=== PATIENT | female | born 1985 | race Caucasian/White ===

== ENCOUNTER 2016-12-18 15:57 | Emergency (ER) | payer OTHER ==
[~2016-12-18] VITALS: Ht 160 cm; Wt 60.0 kg
[~2016-12-18 15:57] MED LIST: AMPH1TAB83 PO; BACL20TA PO; ERGO1CAP35 PO; NATA1INJ IV; NRT/25 PO
[2016-12-18 16:06] VITALS: TEMP 36.7; Ht 160 cm; Wt 60.0 kg
--- NOTE | 2016-12-18 18:17 | EMERGENCY ROOM VISIT NOTE ---
History Report prepared by Guillermo: Isidra Renteria Under the Supervision of: Dr. Naa Gabriel M.D. First contact with patient: 17:41 Chief Complaint: HEAD INJURY (MINOR) Stated Complaint: HIT HEAD AFTER DIZZY SPELL History of Present Illness The patient is a 31 year old female who presents to the Emergency Room with complaints of a sudden head injury that occurred several hours ago. She currently rates her discomfort as a 4/10 in severity. The patient states that she has a history of MS, noting that she has left sided deficit. She states that she experiences vertigo from time to time that causes her to feel she is rocking back and forth. The patient states that while with her sister at same day surgery today, her vertigo worsened and she fell, hitting the back of her head off the floor. She reports that she had a loss of consciousness after her fall. The patient additionally notes neck pain. The patient states that she feels dehydrated today. She states that she was recently prescribed a cane by her neurologist, but states that she does not want to use it. The patient denies any chest pain, abdominal pain, or back pain. She denies any chance of . Source of History: patient Onset: several hours ago Position: head Symptom Intensity: 4/10 Quality: other (injury) Timing: other (sudden) Associated Symptoms: + LOC, + neck pain, No chest pain, No abdominal pain, No back pain Review of Systems See HPI for pertinent positives & negatives. A total of 10 systems reviewed and were otherwise negative. Past Medical & Surgical Medical Problems: (1) Lump Or Mass In Breast (2) MS (multiple sclerosis) (3) Multiple sclerosis Surgical Problems: (1) H/O breast implant Family History Cancer Gallbladder disease Social History Smoking Status: Never Smoker Smokeless Tobacco Use: No Alcohol Use: occasionally Marital Status: Housing Status: lives with family Occupation Status: employed Current/Historical Medications Scheduled Baclofen (Baclofen), 20 MG PO HS Baclofen (Baclofen), 10 MG PO QAM Control Pills ( Control Pills), 1 TAB PO DAILY Fluticasone Propionate (Fluticasone Propionate), 2 SPRAYS JYOTI DAILY Modafinil (Provigil), 200 MG PO QAM Natalizumab (Tysabri), 300 MG IV [id number] Scheduled PRN Albuterol Hfa (Ventolin Hfa), 2 PUFFS INH Q4H PRN for Wheezing Fluticasone Propionate (Flovent Hfa), 2 PUFFS INH BID PRN for Shortness of Breath Allergies Coded Allergies: Sulfamethoxazole w/Trimethoprim (Verified Allergy, Intermediate, Hives, ) Latex1 -Allergic Contact Dermititis (Verified Allergy, Unknown, 07/31/15) Physical Exam Vital Signs Date Time Temp Pulse Resp B/P (MAP) Pulse Ox O2 Delivery O2 Flow Rate FiO2 12/18/16 21:46 73 18 113/69 99 12/18/16 20:16 87 16 106/65 100 Room Air 12/18/16 18:28 59 18 116/64 100 Room Air 12/18/16 16:06 36.7 65 16 120/77 100 Room Air Physical Exam Vital signs reviewed. General: Well-appearing female, in no significant distress. HEENT: No scleral icterus, PERRLA, neck supple. Atraumatic. Cardiovascular: Regular rate and rhythm, no extra sounds. Pulmonary: Clear to auscultation bilaterally, normal work of breathing. Abdomen: Soft, nontender, nondistended, positive bowel sounds. Musculoskeletal: Atraumatic, no peripheral edema. Neurologic: Patient awake alert and oriented x 3, full strength in all 4 extremities. Cranial nerves 2 through 12 grossly intact. GCS 15. Skin: Warm, dry, no rash Medical Decision & Procedures ER Provider Diagnostic Interpretation: CT results as stated below per my review and radiologist interpretation: CT OF THE HEAD WITHOUT CONTRAST CLINICAL HISTORY: Head injury with loss of consciousness. History of multiple sclerosis and vertigo. COMPARISON STUDY: MRI of the brain February 21, 2015. CT DOSE: 537.48 mGy.cm TECHNIQUE: Helical axial images of the head were obtained without IV contrast. Automated exposure control was utilized for the study. FINDINGS: No acute intracranial hemorrhage, midline shift or mass effect is present. Ventricular system is normal. Basilar cisterns are patent. There are no extra-axial collections. Del Roasrio-white differentiation is maintained. There are multiple white matter hypodensities. There is no calvarial fracture. Visualized portions of the sinuses and mastoid air cells are clear. IMPRESSION: 1. No acute intracranial findings. 2. No calvarial fracture. 3. Numerous white matter hypodensities which likely reflect foci of demyelination given the clinical history of multiple sclerosis. Electronically signed by: Paul Ramsey M.D. 12/18/2016 7:02 PM Dictated Date/Time: 12/18/2016 6:57 PM Laboratory Results 12/18/16 18:25 Red Blood Count 4.26, Mean Corpuscular Volume 89.9, Mean Corpuscular Hemoglobin 31.5, Mean Corpuscular Hemoglobin Concent 35.0, Mean Platelet Volume 10.3, Neutrophils (%) (Auto) 42.6, Lymphocytes (%) (Auto) 47.4, Monocytes (%) (Auto) 7.6, Eosinophils (%) (Auto) 1.8, Basophils (%) (Auto) 0.3, Neutrophils # (Auto) 3.07, Lymphocytes # (Auto) 3.41, Monocytes # (Auto) 0.55, Eosinophils # (Auto) 0.13, Basophils # (Auto) 0.02 12/18/16 18:25 Test 12/18/16 18:25 White Blood Count 7.20 K/uL (4.8-10.8) Red Blood Count 4.26 M/uL (4.2-5.4) Hemoglobin 13.4 g/dL (12.0-16.0) Hematocrit 38.3 % (37-47) Mean Corpuscular Volume 89.9 fL (80-100) Mean Corpuscular Hemoglobin 31.5 pg (25-34) Mean Corpuscular Hemoglobin Concent 35.0 g/dl (32-36) Platelet Count 279 K/uL (130-400) Mean Platelet Volume 10.3 fL (7.4-10.4) Neutrophils (%) (Auto) 42.6 % Lymphocytes (%) (Auto) 47.4 % Monocytes (%) (Auto) 7.6 % Eosinophils (%) (Auto) 1.8 % Basophils (%) (Auto) 0.3 % Neutrophils # (Auto) 3.07 K/uL (1.4-6.5) Lymphocytes # (Auto) 3.41 K/uL (1.2-3.4) Monocytes # (Auto) 0.55 K/uL (0.11-0.59) Eosinophils # (Auto) 0.13 K/uL (0-0.5) Basophils # (Auto) 0.02 K/uL (0-0.2) RDW Standard Deviation 42.2 fL (36.4-46.3) RDW Coefficient of Variation 13.0 % (11.5-14.5) Immature Granulocyte % (Auto) 0.3 % Immature Granulocyte # (Auto) 0.02 K/uL (0.00-0.02) Nucleated RBC Absolute Count (auto) 0.03 K/uL (0-0) Nucleated Red Blood Cells % 0.4 % Anion Gap 9.0 mmol/L (3-11) Est Creatinine Clear Calc Drug Dose 76.1 ml/min Estimated GFR () 101.4 Estimated GFR (Non- 87.5 BUN/Creatinine Ratio 14.5 (10-20) Calcium Level 9.1 mg/dl (8.5-10.1) Laboratory results per my review. Medications Administered Medications (Trade) Dose Ordered Sig/Shanna Route Start Time Stop Time Status Last Admin Dose Admin Fentanyl Citrate (Fentanyl Inj) 50 mcg NOW STAT IV 12/18/16 18:32 12/18/16 18:34 DC 12/18/16 18:39 50 MCG Ondansetron HCl (Zofran Inj) 4 mg NOW STAT IV 12/18/16 18:32 12/18/16 18:34 DC 12/18/16 18:39 4 MG Sodium Chloride 1,000 ml @ 999 mls/hr Q1H1M STAT IV 12/18/16 18:32 12/18/16 19:32 DC 12/18/16 18:39 999 MLS/HR Prochlorperazine Edisylate (Compazine Inj) 10 mg NOW STAT IV 12/18/16 19:43 12/18/16 19:45 DC 12/18/16 20:10 10 MG Diphenhydramine HCl (Benadryl Inj) 25 mg NOW STAT IV 12/18/16 19:43 12/18/16 19:45 DC 12/18/16 20:09 25 MG Ketorolac Tromethamine (Toradol Inj) 30 mg NOW STAT IV 12/18/16 19:43 12/18/16 19:45 DC 12/18/16 20:10 30 MG ED Course 1802: Past medical records reviewed. The patient was evaluated in room B11A. A complete history and physical examination was performed. 1832: Ordered Sodium Chloride 1000 ml @ 999 mls/hr IV, Zofran Inj 4 mg IV, Fentanyl Inj 50 mcg IV. 193: I reevaluated the patient and her headache is unbearable. I discussed the exam findings with her and I discussed the treatment plan. She verbalized complete understanding and agreement. She will be discharged after she receives more medication. 1942: Ordered Toradol Inj 30 mg IV, Benadryl Inj 25 mg IV, Compazine Inj 10 mg IV. Medical Decision DDx: Intracranial hemorrhage, intracranial mass, migraine headache, tension headache , sinusitis, meningitis Medication Reconciliation: I attest that I have personally reviewed the patient' s current medication list. Blood Pressure Screening: Patient was found to have normal blood pressure on screening and does not require follow-up. This patient was evaluated and appeared to be in no significant distress. She is fairly tearful and "embarrassed" about her fall. She does not want use her cane she was recently prescribed. CT scan of the head was performed due to the apparent loss of consciousness. This CT is negative. IV access was obtained and the patient was given IV fentanyl 50 g for her pain and Zofran 4 mg for nausea. This apparently did not help her significantly. Subsequently she was given IV Compazine, Toradol and Benadryl with significant improvement. The patient was discharged in care of her . She was encouraged to use her cane to avoid falls. She will follow-up with her primary care physician and return to the ER for worsening of symptoms or any medical concerns. Impression Primary Impression: Post-concussion headache Scribe Attestation The scribe's documentation has been prepared under my direction and personally reviewed by me in its entirety. I confirm that the note above accurately reflects all work, treatment, procedures, and medical decision making performed by me. Departure Information Dispostion Home / Self-Care Referrals Radha Salcedo D.O. (PCP) Forms HOME CARE DOCUMENTATION FORM, IMPORTANT VISIT INFORMATION Patient Instructions [facility] Additional Instructions Diagnosis: Postconcussive headache Continue Tylenol 650 mg every 6 hours as needed for pain. Drink plenty of fluids. Follow-up with your physician this week for reevaluation. Return to the ER for worsening of symptoms or any medical concerns.
[2016-12-18] MEDS ORDERED: MODA200T42 PO (18:26)
[2016-12-18] MEDS ORDERED: VNTHFA/IN INH (18:26)
[2016-12-18] MEDS ORDERED: LRS10 PO ×2 (18:26)
[2016-12-18] MEDS ORDERED: BCPILLS PO (18:26)
[2016-12-18] MEDS ORDERED: FLNIN/ NAE (18:26)
[2016-12-18] MEDS ORDERED: FLVHFA110 INH (18:26)
[2016-12-18] MEDS ORDERED: SODIUM CHLORIDE 0.9% 1000ML 1,000 ML IV STA (18:32)
[2016-12-18] MEDS ORDERED: FENTANYL CITRATE INJ 50 MCG/1 ML 2 ML VIAL IV STA (18:32)
[2016-12-18] MEDS ORDERED: ONDANSETRON INJ 2 MG/ML 2 ML VIAL IV STA (18:32)
[2016-12-18 18:48] LABS: BASO % 0.3 %; BASO ABS # 0.02 K/uL (0-0.2); COMPLETE YES; EOS % 1.8 %; HEMATOCRIT 38.3 % (37-47); IG% 0.3 %; LYMPH % 47.4 %; LYMPH ABS # 3.41 K/uL (1.2-3.4); MEAN CELL VOLUME 89.9 fL (80-100); MEAN CORPUSCULAR HEMOGLOBIN 31.5 pg (25-34); MEAN PLATELET VOLUME 10.3 fL (7.4-10.4); MONO % 7.6 %; NEUT % 42.6 %; PLATELET COUNT 279 K/uL (130-400); RED BLOOD COUNT 4.26 M/uL (4.2-5.4)
--- NOTE | 2016-12-18 19:03 | DIAGNOSTIC IMAGING REPORT ---
CT OF THE HEAD WITHOUT CONTRAST CLINICAL HISTORY: Head injury with loss of consciousness. History of multiple sclerosis and vertigo. COMPARISON STUDY: MRI of the brain February 21, 2015. CT DOSE: 537.48 mGy.cm TECHNIQUE: Helical axial images of the head were obtained without IV contrast. Automated exposure control was utilized for the study. FINDINGS: No acute intracranial hemorrhage, midline shift or mass effect is present. Ventricular system is normal. Basilar cisterns are patent. There are no extra-axial collections. Del Rosario-white differentiation is maintained. There are multiple white matter hypodensities. There is no calvarial fracture. Visualized portions of the sinuses and mastoid air cells are clear. IMPRESSION: 1. No acute intracranial findings. 2. No calvarial fracture. 3. Numerous white matter hypodensities which likely reflect foci of demyelination given the clinical history of multiple sclerosis. Electronically signed by: Paul Ramsey M.D. 12/18/2016 7:02 PM Dictated Date/Time: 12/18/2016 6:57 PM
[2016-12-18 19:07] LABS: BUN/CREATININE RATIO 14.5 (10-20); CALCIUM 9.1 mg/dl (8.5-10.1); CREATININE 0.87 mg/dl (0.60-1.20); POTASSIUM 3.8 mmol/L (3.5-5.1)
[2016-12-18] MEDS ORDERED: PROCHLORPERAZINE 5 MG/ML 2 ML VIAL IV STA (19:43)
[2016-12-18] MEDS ORDERED: DiphenhydrAMINE HCL 50 MG/ML VIAL IV STA (19:43)
[2016-12-18] MEDS ORDERED: KETOROLAC TROMETHAMINE 30 MG/ML VIAL IV STA (19:43)
[2016-12-18 21:46] VITALS: BP 113/69; PULSE 73; O2SAT 99
== END 2016-12-18 21:47 | disposition home or self-care (01) ==
LOC: C.EDB 15:58
DX: G44.309 Post-traumatic headache, unspecified, not intractable (principal); W19.XXXA Unspecified fall, initial encounter; G35 Multiple sclerosis

== ENCOUNTER 2023-01-02 06:07 | Observation (INO) ==
--- NOTE | 2022-12-29 10:43 | Anesthesiology Consultation ---
Date of Service December 29, 2022 Assessment & Plan (1) Encounter for pre-operative examination: Chart Review Chart Review: Acceptable Risk for Surgery History Surgery Operation Date: 01/02/23 07:30 Proposed Procedures p Total Laparoscopic Hysterectomy Bilateral Salpingectomy and Cystoscopy Possible Laparotomy - Cole Kaplan MD Height/Weight Height: 5 ft 2 in Weight: 52.163 kg Allergies Allergy/AdvReac Type Severity Reaction Status Date / Time Bactrim Allergy Intermediate Hives Verified 11/21/22 15:21 sulfamethoxazole [Bactrim] Allergy Intermediate Hives Verified 12/19/22 11:13 trimethoprim [Bactrim] Allergy Intermediate Hives Verified 12/19/22 11:13 Medications Home Medications Medication Instructions Recorded Confirmed Last Taken modafinil 100 mg tablet (Provigil) 100 mg PO BID 12/19/22 12/19/22 Unknown multivitamin 1 tab PO 3XWK 12/19/22 12/19/22 Unknown ocrelizumab 30 mg/mL intravenous 30 mg IV UD 12/19/22 12/19/22 Unknown solution (Ocrevus) Past Medical History Medical History Ankylosing spondylitis Fatigue Gilbert syndrome MS (multiple sclerosis) Seasonal allergies Past Surgical History Surgical History Breast mass rt/left benign mass removed H/O breast augmentation H/O breast reconstruction done after breast mass removed on rt/left breast H/O myomectomy open procedure History of cholecystectomy History of esophagogastroduodenoscopy (EGD) History of liver biopsy History of tonsillectomy and adenoidectomy Hx of LASIK Kindred teeth removed Social History Smoking Status: Former smoker tobacco type: cigarettes Do You Dip or Chew Tobacco: No Smoking End Date: +15 years ago Hx Alcohol Use: Yes Alcohol type: wine alcohol intake frequency: 0-2 drinks per day substance use type: does not use
[~2023-01-02 06:07] MED LIST changes: -AMPH1TAB83 PO; -BACL20TA PO; -ERGO1CAP35 PO; +LACTATED RINGER'S 1,000 ML IV SCH; +LR 15ML/HR IV SCH; -NATA1INJ IV; -NRT/25 PO; +ceFAZolin 2000MG 2,000 MG/15 ML SYR IV SCH
[2023-01-02] MEDS ORDERED: SCOPOLAMINE 1 MG TDSY TD ONE (06:59)
[2023-01-02] MEDS ORDERED: ONDANSETRON INJ 2 MG/ML 2 ML VIAL ONE ×2 (07:00→08:08)
[2023-01-02] MEDS ORDERED: ROCURONIUM BROMIDE 10 MG/ML 5 ML VIAL IV ONE ×6 (07:00→10:50)
[2023-01-02] MEDS ORDERED: PROPOFOL IV EMULSION 10 MG/ML 20 ML VIAL IV ONE ×3 (07:00→10:50)
[2023-01-02] MEDS ORDERED: DEXAMETHASONE SOD INJ 4 MG/ML VIAL ONE (07:00)
[2023-01-02] MEDS ORDERED: LIDOCAINE 2% 2 ML VIAL/AMP(20MG/ML) INFIL ONE (07:00)
[2023-01-02] MEDS ORDERED: fentaNYL citrate PF 100 MCG/2 ML VIAL ONE ×3 (07:01→11:53)
[2023-01-02] MEDS ORDERED: SUGAMMADEX SODIUM 200 MG/2 ML VIAL IV ONE (07:01)
[2023-01-02] MEDS ORDERED: MIDAZOLAM HCL 1 MG/ML 2ML VIAL ONE (07:01)
--- NOTE | 2023-01-02 07:09 | History & Physical Bridge Note ---
Date of Service January 02, 2023 History & Physical Bridge Note I have examined the patient, reviewed the History & Physical and in the interval since the performance of the History & Physical I have noted the following changes of clinical significance: no changes noted
[2023-01-02] MEDS ORDERED: KETOROLAC 30 MG/ML VIAL ONE (07:12)
[2023-01-02] MEDS ORDERED: KETAMINE 50 MG/5 ML SYRINGE ONE (07:12)
[2023-01-02] MEDS ORDERED: BUPIVACAINE/EPINEPHRINE 0.5% MPF 1:200,000 30 ML VIAL ONE (07:31)
[2023-01-02] MEDS ORDERED: ATROPINE SULFATE 0.1 MG/ML 10ML SYR IV PRN (07:35)
[2023-01-02] MEDS ORDERED: ONDANSETRON INJ 2 MG/ML 2 ML VIAL IV PRN ×2 (07:35→12:02)
[2023-01-02] MEDS ORDERED: ePHEDrine sulfate 50 MG/ML AMP IV PRN (07:35)
[2023-01-02] MEDS ORDERED: fentaNYL citrate PF 100 MCG/2 ML VIAL IV PRN (07:35)
[2023-01-02] MEDS ORDERED: PROMETHAZINE HCL 12.5 MG in SODIUM CHLORIDE 0.9% 50 ML IV PRN (07:35)
[2023-01-02] MEDS ORDERED: REMIFENTANIL HCL 1 MG VIAL IV ONE (08:20)
[2023-01-02] MEDS ORDERED: hydrALAZINE HCL 20 MG/ML VIAL ONE (09:01)
[2023-01-02] MEDS ORDERED: ceFAZolin 330 MG/ML 1 GM VIAL ONE (11:42)
[2023-01-02] MEDS ORDERED: ZOLPIDEM TARTRATE 5 MG TAB PO PRN (12:02)
--- NOTE | 2023-01-02 12:02 | Post Operative Brief Note ---
Immediate Post Op Note v1 Date of Surgery January 02, 2023 Pre & Post Diagnosis Operation Date: 01/02/23 07:30 Pre-Op Diagnosis: Fibroid Uterus, History of Endometriosis Post-Op Diagnosis: Fibroid Uterus, History of Endometriosis I identified the patient and participated in the time-out.: Yes Procedure Operation Date: 01/02/23 07:30 Actual Procedures p Total Laparoscopic Hysterectomy, Bilateral Salpingectomy and Cystoscopy(Bilateral) - Cole Kaplan MD Surgeon Cole Kaplan MD Furnace Worker ramin harmon Estimated Blood Loss 10 (+) Findings Consistent with Post-Op Diagnosis Drains Gomez Catheter
[2023-01-02] MEDS: HYDROmorphone INJ 2 MG/ML SYR/VIAL IV PRN ×6 (12:03→12:35)
[2023-01-02] MEDS ORDERED: diphenhydrAMINE 50 MG/ML VIAL IV PRN (13:28)
[2023-01-02] MEDS ORDERED: ACETAMINOPHEN 1,000 MG/100 ML VIAL IV STA (13:28)
--- NOTE | 2023-01-02 13:44 | Anesthesiology Progress Note ---
Date of Service January 02, 2023 Anesthesia Post Procedure Vital Signs Vital Signs: Temp Pulse Pulse Resp BP Pulse Ox O2 Del Method 01/02/23 12:55 36.9 C 88 16 96/49 L 94 Room Air 01/02/23 12:45 90 14 99/51 L 96 Room Air 01/02/23 12:35 84 24 87/44 L 97 Room Air 01/02/23 12:25 90 19 97/48 L 96 Room Air 01/02/23 12:15 81 14 92/44 L 100 Nasal Cannula 01/02/23 12:05 92 H 29 H 93/45 L 100 Nasal Cannula 01/02/23 11:58 37.3 C 98 H 27 H 89/45 L 100 Oxymask 01/02/23 06:25 36.7 C 77 18 142/93 H 100 Room Air O2 Flow Rate 01/02/23 12:55 01/02/23 12:45 01/02/23 12:35 01/02/23 12:25 01/02/23 12:15 2 01/02/23 12:05 2 01/02/23 11:58 4 01/02/23 06:25 Pain Intensity Abdomen: Pain Intensity: 4 Transfer of Care Handoff Completed per policy Notes Mental Status: alert / awake / arousable and participated in evaluation Patient Amnestic to Procedure: Yes Nausea / Vomiting: adequately controlled Pain: adequately controlled Airway Patency, RR, SpO2: stable & adequate BP & HR: stable & adequate Hydration State: stable & adequate Anesthetic Complications: no major complications apparent
[2023-01-02] MEDS ORDERED: diphenhydrAMINE Capsule 25 MG CAP PO PRN (14:53)
[2023-01-02] MEDS: oxyCODONE/ACETAMINOPHEN 5mg/325mg TAB PO PRN ×3 (14:54→20:03)
--- NOTE | 2023-01-02 18:27 | Operative Report ---
PG Post Operative Report Pre & Post Diagnosis Operation Date: 01/02/23 07:30 Pre-Op Diagnosis: Fibroid Uterus, History of Endometriosis Post-Op Diagnosis: Fibroid Uterus, History of Endometriosis I identified the patient and participated in the time-out.: Yes Procedure Operation Date: 01/02/23 07:30 Actual Procedures p Total Laparoscopic Hysterectomy, Bilateral Salpingectomy and (Bilateral) - Deanna Kaplan MD s Cystoscopy(Bilateral) - Deanna Kaplan MD Extensive lysis of adhesion- deanna Kaplan Incision and drainage of bilateral ovarian endometriomas Surgeon Deanna Kaplan MD Associate Drafter ramin harmon Estimated Blood Loss 10 (+) Findings Consistent with Post-Op Diagnosis Nml female escutcheon. Fibroid uterus about 15 week size. bilateral endometrioma of both ovaries. extensive pelvic adhesions from endometriosis stage 4, several endometrial implants in pelvis and lower abdomen, Fluids 1600 Specimens Uterus with cervix left and right fallopian tubes Drains none Anesthesia Type General Complications none Indications fibroid uterus chronic pelvic pain endometriosis stage 4 Description of Procedure FINDINGS: DESCRIPTION OF PROCEDURE: The patient was prepped and draped in normal sterile fashion in the dorsal lithotomy position. Gomez catheter was placed without difficulty. An [employer] uterine manipulator was placed in the uterus to help with colpotomy. Attention was paid to the abdominal part of the procedure where a supraumbilical incision was made and carried down to the fascia. Rahel was used to grab the fascia. Veress needle was introduced into the abdomen at a 45-degree angle while tenting up the abdomen. Intra-abdominal placement was confirmed with a water-filled syringe. A water drop and suction test was performed. The abdomen was insufflated with CO2 gas. The Veress needle was removed and a 5 mm non bladed trocar was attached to a laparoscope was introduced into the abdomen under direct visualization. This was a non bladed trocar. Once inside the abdomen, laparoscope was repositioned. Inspection of the abdomen shows the findings as dictated above. Three more accessory ports were placed, two 5 mm accessory ports were placed in the lower abdomen on the contralateral side, in addition, an 11 mm trocar was placed on the left upper quadrant. General inspection of the abdomen and pelvis was performed as dictated above. There were several adhesions. pt has stage 4 endometriosis..Omentum was attached to abdominal wall. There was no bowel in the omentum, so the LigaSure was passed through one of the contralateral port and dissection of the omentum from the abdominal wall was performed. There was good hemostasis. Left and right fallopian tubes, the ureters, uterosacrals, bowels, appendix were examined and identified. LigaSure was passed through the left accessory port.Extensive lyisi of adhesion was performed using traction and counter traction. This now made visualization and identification of abdominal and pelvic structures possible. The Myoma screw was inserted to help manipulate the fibroid uterus.The left fallopian tube was identified and grabbed 4 cm from the cornua of the uterus with the LigaSure and transected. This was followed by opening of the left anterior leaf of the broad ligament. This allowed for fenestration of the posterior left broad ligament. The mid-section of the left fallopian tube, utero-ovarian and meso-ovarian pedicles were transected as well. Same procedure was performed on the contralateral side. The anterior broad ligament dissection was carried to the mid-section of the vesicouterine peritoneum over the bladder using the Harmonic scalpel. Same procedure was carried out on the contralateral side. The posterior broad ligament peritoneum was carefully dissected also from both sides over the uterosacral arch in order to displace the ureters laterally. Using traction and countertraction, the [place] retractor and irrigation probe was used to further dissect the bladder off the lower segment of the uterus. Bladder pillars and pubovesical fascia was dissected as well. Harmonic scalpel was used to obtain hemostasis where needed. Uterine manipulator was now palpable over the vaginal tissue. The right uterine pedicles were skeletonized and coagulated with the LigaSure. Good hemostasis was obtained. Same procedure was performed on the contralateral side. Cardinal ligaments were transected on both sides. Once good hemostasis was obtained, colpotomy was performed using the LigaSure hook from both sides. Uterus was removed through the vagina while still attached to the uterine manipulator. The bulb was attached to the uterine manipulator was reinserted into the vagina to establish pneumoperitoneum. With a grasper, the remaining section of the left ovary and tube were positioned anteromedially.Left Fallopian tube were removed. Same procedure was performed on contralateral sides. Both ovaries had endometrioma cyst on the, both ovaries were transected with the LigaSure and endometrioma irrigated out of the ovary EndoStitch closure device was passed through the 11 mm port on the left. Using the [place] grasper for traction, colpotomy closure was performed. The uterosacral ligaments incorporated into the closure in order to decrease the risk of prolapse. Lapra ties were used with the EndoStitch. The 11-mm trocar site was closed with a Jevon-James under direct visualization. Attention was paid to the cystoscopy part of the procedure where a cystoscope was introduced into the bladder. There are no sutures seen in the bladder. There were no gross blood seen in the bladder as well. The bubble sign is noted showing the bladder was a close cavity. Both ureters were seen and there was efflux from both uterus. The skin incisions are closed with Dermabond, except for the 11-mm trocar site, which was closed with 4-0 Monocryl. The patient was returned to recovery in stable condition. Inspection of the vagina shows the vaginal cuff was intact. All instruments were removed from the vagina and the bladder and accounted for x2. Associate Drafter was necessary to help with retraction and manipulation of instruments in order to provide for a safe operation I attest to the content of the Intraoperative Record and any orders documented therein. Any exceptions are noted below.
[2023-01-02] MEDS: IBUPROFEN 600 MG TAB PO PRN (19:37)
[2023-01-02] MEDS: DOCUSATE SODIUM 100 MG CAP PO SCH (20:03)
[2023-01-02] MEDS: LACTATED RINGER'S 1,000 ML IV SCH (20:56)
[2023-01-03] MEDS: SIMETHICONE 80 MG CHEW PO PRN ×3 (00:05→12:48)
[2023-01-03] MEDS: IBUPROFEN 600 MG TAB PO PRN ×4 (00:05→12:47)
[2023-01-03] MEDS: oxyCODONE/ACETAMINOPHEN 5mg/325mg TAB PO PRN ×4 (00:07→12:47)
[2023-01-03] MEDS: LACTATED RINGER'S 1,000 ML IV SCH (04:55)
[2023-01-03 07:16] LABS: Basophils # (auto) 0.02 K/uL (0-0.2); Basophils % (auto) 0.4 %; Eosinophils # (auto) 0.02 K/uL (0-0.50); Eosinophils % (auto) 0.4 %; Hematocrit (blood only) 25.7 % (37.0-47.0); Hemoglobin 8.9 g/dl (12.0-16.0); Immature Granulocytes # (auto) 0.02 K/uL (0.01-0.20); Immature Granulocytes % (auto) 0.4 %; Lymphocytes # (auto) 1.87 K/uL (1.2-3.4); Lymphocytes % (auto) 34.1 %; Mean Corpuscular Hemoglobin 33.1 pg (25.0-34.0); Mean Corpuscular Hgb Conc 34.6 g/dL (32.0-36.0); Mean Corpuscular Volume 95.5 fL (80.0-100.0); Mean Platelet Volume 9.8 fL (9.4-12.4); Monocytes # (auto) 0.42 K/uL (0.11-0.59); Monocytes % (auto) 7.7 %; Neutrophils # (auto) 3.14 K/uL (1.40-6.50); Platelet Count 191 K/uL (130-400); RDW Coefficient of Variation 12.1 % (11.5-14.5); RDW Standard Deviation 42.2 fL (36.4-46.3); Red Blood Count 2.69 M/uL (4.20-5.40); White Blood Count 5.49 K/ul (4.8-10.8)
[2023-01-03] MEDS: DOCUSATE SODIUM 100 MG CAP PO SCH (07:25)
[2023-01-03 07:43] LABS: BUN Creatinine Ratio 10.4 (10-20); Calcium 7.9 mg/dl (8.6-10.3); Creatinine Clr Calc Pharmacy 89.2 ml/min; Est GFR (African American) 128.3 ml/min; Est GFR (Non-African American) 110.7 ml/min; Potassium 3.8 mmol/L (3.5-5.1)
--- NOTE | 2023-01-03 09:32 | Obstetrical Progress Note ---
Date of Service January 03, 2023 Assessment & Plan (1) Postop check: Pt doing well no complaints disc home with instructions Subjective Review of Systems All systems reviewed & are unremarkable except as noted in HPI & below Physical Exam Constitutional WD/WN, vitals as above Eyes PERRL, conjunctivae normal, anicteric sclerae ENMT external ear and nose normal, oropharynx normal Neck trachea midline, no thyromegaly Respiratory normal respiratory effort, lungs clear to auscultation Cardiovascular RRR, no murmur, no edema Chest (Breasts) normal inspection/palpation of breasts Gastrointestinal (Abdomen) normal bowel sounds, soft, nontender, no hepatosplenomegaly Musculoskeletal no cyanosis or clubbing, extremities motor strength 5/5 Skin + incision (Incision clean,dry and intact) Neurologic patellar DTR's 2+ bilat, sensation intact Psychiatric A+Ox3, euthymic affect Genitourinary no vaginal lesions, no adnexal mass Lymphatic no cervical or axillary lymphadenopathy Results & Data Vital Signs (Past 12 Hours) Vital Signs Temp Pulse Resp BP Pulse Ox O2 Del Method 01/03/23 08:00 36.6 C 59 L 18 109/70 99 Room Air 01/03/23 03:36 36.7 C 57 L 18 106/70 98 Room Air 01/02/23 22:56 36.6 C 78 18 108/68 98 Room Air
--- NOTE | 2023-01-03 09:46 | Discharge Summary ---
Date of Service January 03, 2023 Admission HPI Per Admitting Provider Pt admitted on 01/02/23 for laparoscopic hysterectomy. Surgery successfully performed and pt is discharged home today 01/03/23 in stable condition. Details of surgery in surgical note Discharge Data Procedures Performed Operation Date: 01/02/23 07:30 Actual Procedures p Total Laparoscopic Hysterectomy, Bilateral Salpingectomy and (Bilateral) - Cole Kaplan MD s Cystoscopy(Bilateral) - Cole Kaplan MD Hospital Course (1) Postop check: Plan Post op course was unremarkable and pt is discharges home in stable condition. Discharge instructions including medications,diet, activity and follow up appointments are reviewed with pt.
== END 2023-01-03 13:00 | disposition home or self-care (01) | DRG 743 ==
LOC: ASU 06:07 → MERGE 07:30 → INTOOBSV 13:52 → 4E1 13:52